=== PATIENT | male | born 1985 | race Caucasian/White ===

== ENCOUNTER → 2024-01-24 09:14 | Outpatient (REF) | payer BC, SELFPAY | LOC: HWRAD 09:14 | PROVIDERS: ATTENDING PHYSICIAN Nurse Practitioner Adult Health | DX: E80.6 Other disorders of bilirubin metabolism (principal) | CPT/HCPCS: 76700 ==

== ENCOUNTER → 2024-04-07 17:27 | Outpatient (REF) | payer BC, SELFPAY | LOC: PAVMRI 17:27 | PROVIDERS: ATTENDING PHYSICIAN Nurse Practitioner Adult Health | DX: K80.80 Other cholelithiasis without obstruction (principal); K83.8 Other specified diseases of biliary tract; R17 Unspecified jaundice | CPT/HCPCS: 74181 ==

== ENCOUNTER → 2024-08-28 14:06 | Outpatient (REF) | payer BC, SELFPAY ==
[2024-09-04 00:24] LABS: HPV, High Risk Detected; HPV, High Risk Source Anal
== END ==
LOC: CLAB 14:06
PROVIDERS: ATTENDING PHYSICIAN Physician Assistant
DX: B20 Human immunodeficiency virus [HIV] disease (principal)
CPT/HCPCS: 87624; 88112

== ENCOUNTER 2024-12-24 06:11 | Day surgery (SDC) | payer BC, SELFPAY ==
[2024-12-24 10:55] VITALS: BMI 27.0
[2024-12-24 10:56] VITALS: BP 107/74
[2024-12-24] MEDS: NORMOSOL-R/PLASMALYTE-A 1000 IV (11:12)
[2024-12-24 15:40] VITALS: BP 116/72
--- NOTE | 2024-12-24 15:44 | W.IMMPOSTOP ---
Surgical Immed Post Op Note
-
Primary Surgeon: Cristobal Carrasco MD
Assisting Surgeon: Zackary Grant MD
Pre-op Diagnosis: Anal HSIL, history of HIV, history of MSM
Post-op Diagnosis: Anal HSIL, history of HIV, history of MSM
Procedure Performed: High resolution anoscopy with biopsy, bilateral pudendal nerve block
Anesthesia Type: Sedation with local
Specimen / Cultures: Total of 8 biopsies, described per op note
Estimated Blood Loss: 10 mL
Complications: None
Operative Findings: Per op note; no anal fissure; hemostasis achieved at end of case placed Surgicel within the anal canal
[2024-12-24 15:45] VITALS: BP 115/78
--- NOTE | 2024-12-24 15:47 | OR.RPT ---
Operative Report
Operative Report
DATE OF OPERATION: 12/24/2024
SURGEON: Cristobal Carrasco MD
PREOPERATIVE DIAGNOSIS: Anal high-grade squamous intraepithelial lesion, history of HIV, history of MSM
POSTOPERATIVE DIAGNOSIS: Anal high-grade squamous intraepithelial lesion, history of HIV, history of MSM
OPERATION: Exam under anesthesia, high-resolution anoscopy, multiple anal biopsies, fulgration of anal lesion, bilateral pudendal nerve block
ASSISTANTS:
1. Zackary Grant MD
ANESTHESIA: Sedation with local
ESTIMATED BLOOD LOSS: 10 mL
FINDINGS:
1. No anal fissure on exam, internal sphincter normal tonicity
2. Multiple anal canal biopsies and one perianal biopsy for acetowhite, Lugol's negative lesions
3. Fulgurated lesion at the right lateral squamocolumnar junction
SPECIMENS:
1. Anterior midline mid�anal canal
2. Left anterior dentate line
3. Left lateral mid-anal canal
4. Left posterior mid-anal canal
5. Left posterior perianal tag
6. Posterior midline mid anal canal
7. Right posterior superficial (at anal verge)
8. Right lateral deep (at the squamocolumnar junction)
DRAINS: None
COMPLICATIONS: None
INDICATIONS: The patient is a 39-year-old male who has a PMH of HIV, recent infection of syphilis and genital herpes, who was found to have anal high-grade squamous intraepithelial lesion on screening anal Pap. Therefore, the patient was
recommended to have high-resolution anoscopy with possible biopsy and fulguration. After discussion with the patient, it was determined that performing the procedure with anesthesia would be better as he recently recovered from an anal fissure and
may have residual pain or hypertonicity. The operation was discussed with the patient in detail, including the risks, benefits and alternatives. Risks described included, but not limited to bleeding, infection, urinary retention, damage to nearby
structures such as the anal sphincter, fecal incontinence, missed lesions, recurrence, progression to anal cancer despite monitoring and treatment and anesthetic risks. If a fissure is identified, I would consider injection with Kenalog in order to
assist with healing. The patient understood and agreed to proceed. The consent was signed and placed in the chart.
PROCEDURE IN DETAIL: The patient was taken to the operating room. The patient was placed on the operating table in prone position. Sequential compression devices were placed bilaterally. Sedation was commenced without complication. Two seat belts
were secured around the legs and upper back. The buttocks were taped apart. The perineum was prepped and draped in the usual fashion. A time-out was performed verifying the correct patient, procedure, operative site, positioning, and special
equipment.
Local anesthesia used was a mixture of 60 mL of 0.25% Marcaine with epinephrine and 0.6 mg of dexamethasone. 40 mL was injected perianally at the beginning of the case. The anorectal exam was performed assessing all four quadrants of the anal canal
using Hill-Montgomery retractors in progressively increasing size. Perianally, there was a very small pedunculated lesion in the left posterior region, about 3 mm in length. There was no visible concerning anal canal lesions and no concerning
internal hemorrhoids. There was no proctitis.
I placed a ray-adilson soaked in 5% acetic acid within the anal canal and folded an external portion of it to cover the isabel-anal region. This was left in place for 3 minutes and then removed. The anal canal was again visualized with Hill-Montgomery
retractors. Each quadrant was examined using the laparoscope on highest zoom, allowing for high-resolution. Lugol's 2% solution was then swabbed on to each quadrant under direct visualization using high-resolution.
In the perianal area, there was no concerning acetowhite, Lugol's negative lesion so no biopsy was performed.
In the anterior quadrant, there was a broad area of acetowhite between the squamocolumnar junction and dentate line. There was patchy Lugol's negative areas without concerning vascular patterns. I performed a biopsy in the mid anal canal along the
midline. There was a raised patch in the left anterior position at the dentate line. I performed a biopsy of this. Hemostasis was achieved with electrocautery.
In the left lateral quadrant, there was a broad area of acetowhite between the squamocolumnar junction and dentate line with partial uptake of the Lugol's. I performed a biopsy in the left lateral mid anal canal where it appeared Lugol's negative,
but no concerning vascular patterns. There was an additional raised area in the left posterior position in the mid-anal canal that was acetowhite and Lugol's negative, no concerning vascular pattern. I biopsied this. Hemostasis was achieved with
electrocautery. In the perianal region of the left posterior quadrant, there was a tiny pedunculated tag. It was too small to appreciate staining by the acetic acid. I performed an excisional biopsy of this tag and sent it for specimen.
Hemostasis was achieved with electrocautery.
In the posterior quadrant, there was scattered areas of acetowhite with partial uptake of the Lugol's between the squamocolumnar junction and dentate line. In the posterior midline, there was an area with acetowhite and Lugol's negative, no
concerning vascular pattern. I performed a biopsy of this. In the right posterior position at the anal verge, there was an area of acetowhite and concern for micropunctations. Therefore, I performed a biopsy of this. Hemostasis was achieved with
electrocautery.
In the right lateral quadrant, there was an elevated lesion in the right lateral position at the squamocolumnar junction. This was acetowhite and Lugol's negative with concern for micropunctations. I performed a biopsy of this and fulgurated the
lesion, which was less than 1 cm x 1 cm. Hemostasis was assured.
The remaining 20 mL of local were injected. 5 mL was injected bilaterally for a pudendal nerve block. 10 mL was injected around the surgical site and perianally. Hemostasis was reassessed once more using the small Hill-Montgomery and was confirmed.
Surgicel was placed in the operative site prophylactically. At this point, the procedure was complete. All needle, sponge and instrument counts were correct. The patient tolerated the procedure well and was transferred to the recovery room in stable
condition with gauze dressing in place secured with silk tape.
Of note, Zackary Grant MD, assistant associate professor, was necessary during this procedure for traction, countertraction, and exploratory purposes. I was present for the entire duration of the case.
DICTATED BY: Cristobal Carrasco MD
[2024-12-24 16:00] VITALS: BP 102/74
[2024-12-24 16:15] VITALS: BP 115/86
[2024-12-24 16:30] VITALS: BP 105/71
== END 2024-12-24 16:40 | disposition home or self-care (01) ==
LOC: SDS 06:11
PROVIDERS: ATTENDING PHYSICIAN Surgery
DX: K62.82 Dysplasia of anus (principal); K60.2 Anal fissure, unspecified; Z21 Asymptomatic human immunodeficiency virus [HIV] infection status
CPT/HCPCS: 46922; 45100; 88305; 88341; 88342